=== PATIENT | male | born 1965 | race Caucasian/White ===

== ENCOUNTER 2021-10-07 13:29 | Emergency (ER) | payer OTHER ==
[2021-10-07] MEDS ORDERED: LORazepam 2 MG/ML SDV IVPUSH ONE (14:11)
[2021-10-07] MEDS ORDERED: Metoclopramide 10 MG/2 ML SDV IVPUSH ONE (14:11)
[2021-10-07] MEDS ORDERED: Sodium Chloride 0.9% 10 ML Syringe FLUSH PRN (14:19)
[2021-10-07] MEDS ORDERED: Ondansetron 4 MG/2 ML SDV IVPUSH ONE (15:15)
== END 2021-10-07 17:33 | disposition home or self-care (01) ==
LOC: JD.ED 13:29
DX: R42 Dizziness and giddiness (principal); I10 Essential (primary) hypertension; Z86.16 Personal history of COVID-19
CPT/HCPCS: 36415; 70450; 80053; 83735; 84484; 85025; 86140; 93005; 96374; 96375; 99284; A9270; J2060; J2405; J2765; J3490